=== PATIENT | female | born 1990 | race Caucasian/White ===

== ENCOUNTER 2018-12-20 15:13 | Outpatient (CLI) | payer BC ==
[~2018-12-20] VITALS: Ht 167.7 cm; Wt 72.7 kg
[2018-12-20] MEDS ORDERED: PREN-53 PO (16:03)
[2018-12-20] MEDS ORDERED: DOCO100C PO (16:04)
[2018-12-20] MEDS ORDERED: FERR240T15 PO (16:04)
[2018-12-21] MEDS ORDERED: IBUP-1773 PO (09:32)
[2018-12-21] MEDS ORDERED: DOCU100C37 PO (09:32)
[2018-12-21] MEDS ORDERED: HYDR-4226 PO (09:32)
== END 2018-12-20 16:07 | disposition home or self-care (01) ==
LOC: PREOP 15:13
PROVIDERS: ATTEND Obstetrics & Gynecology
DX: Z01.818 Encounter for other preprocedural examination (principal)

== ENCOUNTER 2018-12-21 02:57 | Inpatient (IN) | payer BC ==
[2018-12-21] VITALS (10 sets, daily range): BP systolic 101–127; BP diastolic 62–78
[~2018-12-21] VITALS: Ht 167.6 cm; Wt 72.6 kg
[~2018-12-21 02:57] MED LIST: DOCO100C PO; FERR240T15 PO; PREN-53 PO
--- NOTE | 2018-12-21 07:45 | NUR ---
JAMEY DEAN presented to unit via ambulation, accompanied by , for scheduled c/s. Pt. weighed, gowned, voided, and to bed. EFHM and TOCO applied, VS taken. Pt. oriented to bed controls, call light, TV, heat, and A/C controls.
[2018-12-21] MEDS ORDERED: LACTATED RINGERS 1,000 ML IV PRN (08:09)
[2018-12-21] MEDS ORDERED: ceFAZolin INJECTION 1,000 MG in WATER (STERILE) FOR INJECTION 10 ML IV ONE (08:15)
[2018-12-21] MEDS ORDERED: FAMOTIDINE 20MG/2ML IV (PEPCID) IV ONE (08:15)
[2018-12-21] MEDS ORDERED: CITRIC ACID/SOB CIT (BICITRA) 30 ML UDC PO ONE (08:15)
[2018-12-21] MEDS ORDERED: METOCLOPRAMIDE INJ 10 MG/2 ML (REGLAN) IV ONE (08:15)
[2018-12-21 08:40] LABS: BASOPHILS % (AUTO) 0 % (0-10); EOSINOPHILS % (AUTO) 0 % (0-10); HEMATOCRIT 38 % (35-52); HEMOGLOBIN 12.9 G/DL (11.5-16.0); LYMPHOCYTES # (AUTO) 1.6 X 10^3 (1.0-4.0); LYMPHOCYTES % (AUTO) 24 % (12-44); MEAN CORPUSCULAR HEMOGLOBIN 32 PG (25-34); MEAN CORPUSCULAR HGB CONC 34 G/DL (32-36); MEAN CORPUSCULAR VOLUME 94 FL (80-99); MEAN PLATELET VOLUME 10.9 FL (7.4-10.4); MONOCYTES # (AUTO) 0.5 X 10^3 (0.0-1.0); MONOCYTES % (AUTO) 7 % (0-12); NEUTROPHILS # (AUTO) 4.5 X 10^3 (1.8-7.8); NEUTROPHILS % (AUTO) 69 % (42-75); PLATELET COUNT 107 10^3/uL (130-400); RED CELL DISTRIBUTION WIDTH 12.9 % (10.0-14.5); WHITE BLOOD COUNT 6.5 10^3/uL (4.3-11.0)
[2018-12-21] MEDS ORDERED: ceFAZolin INJECTION 1,000 MG ONE (09:03)
[2018-12-21] MEDS ORDERED: WATER (STERILE) FOR INJECTION 10 ML ONE (09:03)
--- NOTE | 2018-12-21 09:05 | NUR ---
pre-op medications given. see eMar for further.
[2018-12-21] MEDS ORDERED: fentaNYL INJECTION 100 MCG/2 ML AMP ONE (09:07)
[2018-12-21] MEDS ORDERED: KETAMINE/NaCl 50 MG/5 ML SYRINGE ONE (09:14)
[2018-12-21] MEDS ORDERED: OXYTOCIN/NORMAL SALINE 1,000 ML IV ONE (09:16)
[2018-12-21] MEDS ORDERED: ONDANSETRON 4 MG/2 ML (SDV) Z0FRAN ONE (09:18)
--- NOTE | 2018-12-21 09:23 | NUR ---
monitors dc'd. pt ambulated to OB c/s room with OR staff @ side. pt stable with no sx's of distress noted. monitor tracing reviewed. FHR 130's. average variability noted. accels present. no decels noted. ct's q 7-13 mins noted with 130-220 sec duration.
--- NOTE | 2018-12-21 09:25 | Progress Note-Pre Operative ---
Pre-Operative Progress Note H&P Reviewed The H&P was reviewed, patient examined and no changes noted. Date Seen by Provider: Dec 21, 2018 Time Seen by Provider: 09:00 Date H&P Reviewed: Dec 21, 2018 Time H&P Reviewed: 09:00 Pre-Operative Diagnosis: Previous x 1, 41 week IUP KAILEY PRYOR DO Dec 21, 2018 09:25
[2018-12-21] MEDS ORDERED: ONDANSETRON 4 MG/2 ML (SDV) Z0FRAN IVP PRN (09:30)
[2018-12-21] MEDS ORDERED: HYDROcodone/APAP 5 MG/325 MG (LORTAB) TAB PO PRN (09:30)
[2018-12-21] MEDS ORDERED: MEASLES,MUMPS,RUBELLA 1 EA INJ SC SCH (09:30)
[2018-12-21] MEDS ORDERED: TETANUS,DIPTH,PERTUSS P/F (BOOSTRIX) 0.5 ML VIAL IM SCH (09:30)
[2018-12-21] MEDS ORDERED: IBUP-1773 PO (09:32)
[2018-12-21] MEDS ORDERED: HYDR-4226 PO (09:32)
[2018-12-21] MEDS ORDERED: DOCU100C37 PO (09:32)
--- NOTE | 2018-12-21 09:34 | Discharge Inst-Women's Service ---
Discharge Inst-Women's Serv Depart Medication/Instructions New, Converted or Re-Newed RX: RX on Chart Final Diagnosis POD 2 RLTCS Problems Reviewed?: Yes Consults/Follow Up Additional Follow Up: Yes Orders/Referrals Dr. Hernández in 7-10 days and in 6 weeks Activity Driving Instructions: You May Drive (do not drive while in pain, or req uiring/taking hydrocodone) NO SMOKING: NO SMOKING Nothing Inside Vagina: No Douching, No Drain, No Tampons Diet Discharge Diet: No Restrictions Symptoms to Report to : Bleeding Excessive, Pain Increased, Fever Over 101 Degrees F, Vaginal Bleeding Increase, Questions/Concerns For Any Problems or Questions: Contact Your Physician Skin/Wound Care Infection Signs and Symptoms: Increased Redness, Foul Odor of Wound, Increased Drainage, Skin Itchy or Has a Rash, Increased Swelling, Temperature Above 101 F Operative Area Clean and Dry: Keep Incision Clean/Dry Stitches/Ubaldo/Dermabond: Dermabond, Care of Stitches Bathing Instructions: KAILEY Hale DO Dec 21, 2018 09:34
[2018-12-21] MEDS ORDERED: BUPIVACAINE 0.5% 30 ML (SENSORCAINE) VIAL ONE (10:23)
[2018-12-21] MEDS: KETOROLAC 30 MG/ML VIAL IV SCH ×3 (11:17→22:45)
[2018-12-21] MEDS: OXYTOCIN/NORMAL SALINE 500 ML IV SCH (11:30)
--- NOTE | 2018-12-21 11:30 | NUR ---
into nursery to see via bed.
--- NOTE | 2018-12-21 13:00 | NUR ---
transported to room 306 via bed with nursing staff @ side. 1305- eubanks catheter dc'd. 700cc dark, heike urine noted. omega-care offered. v-pad and panties in place.
--- NOTE | 2018-12-21 15:35 | NUR ---
assisted up to BR. unable to void. omega-care offered. v-pad and panties in place. ambulated to nursery for bonding with .
--- NOTE | 2018-12-21 15:51 | OPERATIVE REPORT ---
DATE OF SERVICE: 12/21/2018 PREOPERATIVE DIAGNOSES: 1. A 28-year-old G3, P1 at 41 weeks and 1 day gestation. 2. Previous section. POSTOPERATIVE DIAGNOSES: 1. A 28-year-old G3, P1 at 41 weeks and 1 day gestation. 2. Previous section. PROCEDURE: Repeat low transverse section. SURGEON: Yomi Hernández DO BOUNTY HUNTER: Julissa Hdez DNP. She was necessary for retraction and manipulation of structures that were vital to the completion of the case. ANESTHESIA: Spinal. ESTIMATED BLOOD LOSS: 500 mL. URINE OUTPUT: 200 mL clear at the end of the procedure. FLUIDS: 1250 mL of lactated Ringer's solution. FINDINGS: A live male infant, weighing 9 pounds 7 ounces, Apgars of 7 and 8. Grossly normal appearing uterus, bilateral fallopian tubes and ovaries. SPECIMEN SENT: None. INDICATION FOR PROCEDURE: This 28-year-old female, who was a patient that was consulted to my office yesterday for post-date and a history of a previous . She had planned on attempting the at [facility] in [place]; however, was told days before her induction that her insurance would not cover induction of delivery at [facility]. The patient then sought out care elsewhere. The nearest proximity hospital to her from [place] would be our hospital. I discussed with her with her being post-dates as well as having an unfavorable cervix on exam that I did not recommend proceeding with a trial of labor after . The risk of this was reviewed with the patient. After everything was discussed, the patient was agreeable to proceed with repeat . I reviewed with her the risks of the surgery itself in detail and after all of her questions were answered, we scheduled her for the following morning at 41 weeks and 1 day gestation. In the preoperative area, once again, all the patient's questions were answered, consent was obtained, the patient was taken to the operating room. OPERATIVE REPORT IN DETAIL: Once in the operating room, spinal analgesia was found to be adequate. She was placed in the supine position with leftward tilt, prepped and draped in normal sterile fashion. A timeout was performed and anesthesia was tested. A Pfannenstiel skin incision was then made through the previously existing scar using knife and carried down to the underlying fascia using Bovie cautery. The fascial incision was extended laterally using Bovie cautery. Superior aspect of the fascial incision was then grasped with Simeon clamps, tented upward and dissected off the underlying rectus muscles. The inferior aspect of the fascial incision was then grasped with Simeon clamps, tented upward and dissected off the underlying rectus muscles. The rectus muscle was then dissected down the midline using Kelly scissors, which exposes the peritoneum, which I entered bluntly and extended using blunt traction. Gary ring retractor was then placed within the peritoneal incision, which offers excellent lateral sidewall retraction. I then identified the lower uterine segment, which was found to be thinned out and made a low transverse incision into the vesicouterine peritoneum and bluntly dissected this off the lower uterine segment. I then proceeded with my myotomy until membranes are visualized, at which point, I extended the uterine incision laterally and superiorly using bandage scissors. Amniotomy was then performed using an Allis. Clear fluid was noted. The infant was found in the vertex presentation. With gentle fundal pressure, the infant's head was elevated up the incision and delivered through the incision where the nares and oropharynx were bulb suctioned. A nuchal cord was reduced x1. Anterior and posterior shoulders were delivered. Infant was then brought to the operative field where the cord was doubly clamped and cut and was handed off to waiting nurses in attendance. Cord blood was collected, 3-vessel cord with intact placenta was delivered spontaneously thereafter. IV Pitocin was initiated to facilitate uterine contraction. Uterine fundus became firmer with bimanual massage. The uterus was then exteriorized and cleared of all endometrial clots and debris. I then closed the uterine incision using 0 Vicryl suture in a running locking fashion. Second layer of imbricating 0 Monocryl was placed. Excellent hemostasis was noted after doing this. I then placed the uterus back in the pelvis and copiously irrigated the pelvis using normal saline. Once again, there was no active bleeding noted from any of my dissection planes. I placed Interceed antiadhesive over my low transverse incision and proceeded with closing the peritoneum using 3-0 Vicryl suture in a running fashion after I removed the Gary ring retractor. Once the peritoneum was closed, I reapproximated the underlying rectus muscles using 3-0 Vicryl suture in interrupted fashion. The fascia was reapproximated with 0 Vicryl suture in running fashion. The subcutaneous tissues were reapproximated using 3-0 plain interrupted subcutaneous stitch and skin was reapproximated using 4-0 Monocryl in a running subcuticular. Dermabond was applied to incision. Sterile dressing was adhesed with white tape. The patient tolerated the procedure well and sent to recovery area in stable condition. Lap and sponge counts were correct at the end of the procedure. Instrument count was correct as well. One gram of Ancef was given preoperatively for infection prophylaxis. Job ID: [id number] DocumentID: [id number] Dictated Date: 12/21/2018 11:27:20 Custodial Worker Date: 12/21/2018 15:50:26 Dictated By: DO SONAL TEJEDA
[2018-12-21] MEDS: CATHETER FLUSH 10 ML SYR IV SCH (16:56)
--- NOTE | 2018-12-21 17:00 | NUR ---
ambulated to waiting room to visit with family members. infant remains in nursery on Vapotherm.
--- NOTE | 2018-12-21 18:55 | NUR ---
pt and ambulated to room. +void. 800cc urine noted. ice water refreshed. no c/o's voiced.
--- NOTE | 2018-12-21 19:06 | NUR ---
report given to ALEXANDER Worrell.
--- NOTE | 2018-12-21 20:00 | NUR ---
pt ambulating to nsy, denies needs at this time.
--- NOTE | 2018-12-21 21:00 | NUR ---
fresh ice water given, pt back to room at this time.
[2018-12-21] MEDS: DOCUSATE SODIUM 100 MG (COLACE) CAP PO SCH (21:01)
--- NOTE | 2018-12-21 23:00 | NUR ---
pt resting in bed, denies needs.
--- NOTE | 2018-12-22 00:08 | NUR ---
pt ambulated to nsy to sanchez with infant.
[2018-12-22 04:04] VITALS: BP 123/75
[2018-12-22] MEDS: KETOROLAC 30 MG/ML VIAL IV SCH (05:19)
[2018-12-22 06:07] LABS: BASOPHILS % (AUTO) 0 % (0-10); EOSINOPHILS # (AUTO) 0.1 10^3/uL (0.0-0.3); EOSINOPHILS % (AUTO) 1 % (0-10); HEMATOCRIT 36 % (35-52); HEMOGLOBIN 12.5 G/DL (11.5-16.0); LYMPHOCYTES # (AUTO) 1.6 X 10^3 (1.0-4.0); LYMPHOCYTES % (AUTO) 16 % (12-44); MEAN CORPUSCULAR HEMOGLOBIN 33 PG (25-34); MEAN CORPUSCULAR HGB CONC 34 G/DL (32-36); MEAN CORPUSCULAR VOLUME 95 FL (80-99); MEAN PLATELET VOLUME 10.7 FL (7.4-10.4); MONOCYTES # (AUTO) 0.6 X 10^3 (0.0-1.0); MONOCYTES % (AUTO) 6 % (0-12); NEUTROPHILS # (AUTO) 7.7 X 10^3 (1.8-7.8); NEUTROPHILS % (AUTO) 77 % (42-75); PLATELET COUNT 113 10^3/uL (130-400); RED CELL DISTRIBUTION WIDTH 12.6 % (10.0-14.5); WHITE BLOOD COUNT 10.1 10^3/uL (4.3-11.0)
[2018-12-22] MEDS: CATHETER FLUSH 10 ML SYR IV SCH ×2 (07:44→13:08)
--- NOTE | 2018-12-22 07:51 | Postpartum Progress Note ---
Note Note Day # 1 Subjective: Patient is without complaints. Ambulating, voiding. Tolerating a regular diet without nausea or vomiting. Normal lochia. Pain is well controlled with oral pain medications. Objective: Physical Exam: General - Alert and oriented, no apparent distress Abdomen - Soft, appropriately tender to palpation, non-distended, fundus firm at umbilicus Extremities - no edema, negative Dai's bilaterally Incision- c/d/i Assessment: POD 1 RLTCS Plan: Routine care. Encourage breast feeding. Encourage ambulation. Ferrous sulfate supplementation. Plan for discharge tomorrow Vitals - Labs Vital Signs - I&O Vital Signs Date Time Temp Pulse Resp B/P (MAP) Pulse Ox O2 Delivery O2 Flow Rate FiO2 12/22/18 04:04 36.5 70 16 123/75 (91) 99 Room Air 12/21/18 23:00 36.6 73 16 111/68 (82) 99 Room Air 12/21/18 18:55 36.5 77 18 117/67 (84) 99 Room Air 12/21/18 13:00 36.0 53 18 117/73 (88) 100 Room Air 12/21/18 11:23 36.0 18 101/77 (85) 100 Room Air 12/21/18 11:23 Room Air 12/21/18 11:10 35.8 18 106/65 (79) 100 Room Air 12/21/18 11:10 Room Air 12/21/18 10:54 Room Air 12/21/18 10:54 35.8 16 107/77 (87) 100 Room Air 12/21/18 10:27 Room Air 12/21/18 10:27 36.0 16 115/69 (84) 100 Room Air 12/21/18 09:10 85 18 115/62 (79) Room Air 12/21/18 08:40 99 18 124/74 (91) Room Air I & O 12/22/18 07:00 Intake Total 3710 ml Output Total 3400 ml Balance 310 ml Labs Laboratory Tests 12/21/18 08:18: White Blood Count 6.5, Red Blood Count 4.00L, Hemoglobin 12.9, Hematocrit 38, Mean Corpuscular Volume 94, Mean Corpuscular Hemoglobin 32, Mean Corpuscular Hemoglobin Concent 34, Red Cell Distribution Width 12.9, Platelet Count 107L, Mean Platelet Volume 10.9H, Neutrophils (%) (Auto) 69, Lymphocytes (%) (Auto) 24, Monocytes (%) (Auto) 7, Eosinophils (%) (Auto) 0, Basophils (%) (Auto) 0, Neutrophils # (Auto) 4.5, Lymphocytes # (Auto) 1.6, Monocytes # (Auto) 0.5, Eosinophils # (Auto) 0.0, Basophils # (Auto) 0.0 12/22/18 05:30: White Blood Count 10.1, Red Blood Count 3.84L, Hemoglobin 12.5, Hematocrit 36, Mean Corpuscular Volume 95, Mean Corpuscular Hemoglobin 33, Mean Corpuscular Hemoglobin Concent 34, Red Cell Distribution Width 12.6, Platelet Count 113L, Mean Platelet Volume 10.7H, Neutrophils (%) (Auto) 77H, Lymphocytes (%) (Auto) 16, Monocytes (%) (Auto) 6, Eosinophils (%) (Auto) 1, Basophils (%) (Auto) 0, Neutrophils # (Auto) 7.7, Lymphocytes # (Auto) 1.6, Monocytes # (Auto) 0.6, Eosinophils # (Auto) 0.1, Basophils # (Auto) 0.0 KAILEY PRYOR DO Dec 22, 2018 07:51
[2018-12-22 08:00] VITALS: BP 110/67
[2018-12-22] MEDS: OXYTOCIN/NORMAL SALINE 500 ML IV SCH (08:29)
[2018-12-22] MEDS: DOCUSATE SODIUM 100 MG (COLACE) CAP PO SCH ×2 (08:32→20:04)
[2018-12-22] MEDS: IBUPROFEN 600 MG (MOTRIN) TAB PO SCH ×3 (11:33→23:28)
[2018-12-22 12:00] VITALS: BP 109/66
--- NOTE | 2018-12-22 14:55 | NUR ---
Report received from Paige MUNOZ
[2018-12-22 16:01] VITALS: BP 127/71
--- NOTE | 2018-12-22 16:26 | Anesthesia-Regional Post-Op ---
Regional Patient Condition Mental Status: Alert, Oriented x3 Circulation: Same as Pre-Op Headache: Absent Sensation: Full Recovery Motor Block: Absent Post Op Complications Complications None Follow Up Care/Instructions Patient Instructions None needed. Anesthesia/Patient Condition Patient is doing well, no complaints, stable vital signs, no apparent adverse anesthesia problems. No complications reported per nursing. JUANJOSE BALDERAS CRNA Dec 22, 2018 16:26
--- NOTE | 2018-12-22 20:00 | NUR ---
pt resting in bed holding nb. assessment completed. pt denies any needs at this time. will continue to monitor.
[2018-12-22 21:08] VITALS: BP 108/70
[2018-12-23 02:28] VITALS: BP 109/63
[2018-12-23] MEDS: IBUPROFEN 600 MG (MOTRIN) TAB PO SCH ×2 (05:58→13:00)
--- NOTE | 2018-12-23 09:45 | Postpartum Progress Note ---
Note Note Day # 2 Subjective: Patient is without complaints. Ambulating, voiding. Tolerating a regular diet without nausea or vomiting. Normal lochia. Pain is well controlled with oral pain medications. Objective: Physical Exam: General - Alert and oriented, no apparent distress Abdomen - Soft, appropriately tender to palpation, non-distended, fundus firm at umbilicus Extremities - no edema, negative Dai's bilaterally Incision- c/d/i Assessment: POD 2 RLTCS Plan: Routine care. Encourage breast feeding. Encourage ambulation. Ferrous sulfate supplementation. Plan for discharge today Vitals - Labs Vital Signs - I&O Vital Signs Date Time Temp Pulse Resp B/P (MAP) Pulse Ox O2 Delivery O2 Flow Rate FiO2 12/23/18 02:28 36.3 67 18 109/63 (78) Room Air 12/22/18 21:08 36.3 67 16 108/70 (83) Room Air 12/22/18 16:01 36.8 75 16 127/71 (89) 96 Room Air 12/22/18 12:00 36.4 71 16 109/66 (80) 98 Room Air I & O 12/23/18 07:00 Intake Total 510 ml Balance 510 ml KAILEY PRYOR DO Dec 23, 2018 09:45
--- NOTE | 2018-12-23 09:45 | NUR ---
here. dismissal instructions given.
[2018-12-23 10:00] VITALS: BP 121/66
--- NOTE | 2018-12-23 10:00 | NUR ---
initial shift assessment completed, see interventions for further.
--- NOTE | 2018-12-23 13:20 | NUR ---
dismissal instructions given, verbalizes understanding. reviewed follow up appointments and Rx's. signature page singed, placed on chart.
--- NOTE | 2018-12-23 13:30 | NUR ---
pt ambulated to private vehicle with this RN, and @ side. secured in rear facing car seat. pt stable with no sx's of distress noted.
--- NOTE | 2018-12-23 13:49 | NUR ---
dismissal instructions given, verbalizes understanding. reviewed follow up appointments & Rx's. signature page signed, placed on chart. Addendum: 12/23/18 at 1712 by PARISA OH RN error- wrong chart.
== END 2018-12-23 13:30 | disposition home or self-care (01) | DRG 788 ==
LOC: LDRP 07:45 → WS 11:30
PROVIDERS: ADMIT Obstetrics & Gynecology; ATTEND Obstetrics & Gynecology
PROC: 10D00Z1 Extraction of Products of Conception, Low, Open Approach (ICD-10-PCS; principal; 2018-12-21 09:24)
DX: O48.0 Post-term pregnancy (principal); O34.211 Maternal care for low transverse scar from previous cesarean delivery; O69.81X0 Labor and delivery complicated by cord around neck, without compression, not applicable or unspecified; Z37.0 Single live birth; Z3A.41 41 weeks gestation of pregnancy
CPT/HCPCS: 36415; 85025; 86850; 86900; 86901; 94664